=== PATIENT | female | born 1955 | race Two or more races ===

== ENCOUNTER → 2017-08-06 | Outpatient (CLI) | payer OTHER ==
[~2017-08-06] MED LIST: SYMBICORT 80/10.2 GM
== END | disposition home or self-care (01) ==
LOC: TOM 16:15
DX: J43.2 Centrilobular emphysema (principal); J01.90 Acute sinusitis, unspecified; R91.1 Solitary pulmonary nodule

== ENCOUNTER 2018-05-07 13:31 | Outpatient (CLI) | payer OTHER | END 2018-05-07 13:40 | disposition home or self-care (01) | LOC: RAD 501 13:31 | DX: M25.562 Pain in left knee (principal) ==

== ENCOUNTER 2018-06-20 14:16 | Outpatient (CLI) | payer OTHER | END 2018-06-20 14:58 | disposition home or self-care (01) | LOC: RAD 501 14:16 | DX: M54.2 Cervicalgia (principal); M25.511 Pain in right shoulder ==

== ENCOUNTER 2018-09-09 15:43 | Outpatient (CLI) | payer OTHER | END 2018-09-09 17:00 | disposition home or self-care (01) | LOC: TOM 15:43 | DX: J43.2 Centrilobular emphysema (principal); J30.1 Allergic rhinitis due to pollen; J45.30 Mild persistent asthma, uncomplicated; R00.8 Other abnormalities of heart beat ==

== ENCOUNTER 2019-12-04 11:28 | Outpatient (CLI) | payer OTHER | END 2019-12-04 11:39 | disposition home or self-care (01) | LOC: TOM 11:28 | PROVIDERS: ATTEND Internal Medicine Pulmonary Disease | DX: J43.2 Centrilobular emphysema (principal); J30.1 Allergic rhinitis due to pollen; J45.30 Mild persistent asthma, uncomplicated; R91.1 Solitary pulmonary nodule; R06.02 Shortness of breath ==

== ENCOUNTER 2020-05-04 12:36 | Emergency (ER) | payer OTHER ==
[~2020-05-04] VITALS: Ht 157.5 cm; Wt 55.3 kg
[2020-05-04] MEDS ORDERED: MORGIDOX100 MG (12:44)
[2020-05-04] MEDS ORDERED: MUPIROCIN22 GM TOP (13:12)
== END 2020-05-04 13:26 | disposition home or self-care (01) ==
LOC: ER 12:36
DX: S50.812A Abrasion of left forearm, initial encounter (principal); W10.8XXA Fall (on) (from) other stairs and steps, initial encounter; Y93.89 Activity, other specified; Y92.038 Other place in apartment as the place of occurrence of the external cause; Y99.8 Other external cause status